=== PATIENT | male | born 1955 | race Caucasian/White ===

== ENCOUNTER → 2019-07-23 | Outpatient (CLI) | payer MEDICARE, OTHER ==
[~2019-07-23] MED LIST: FLEXERIL 1010 MG/TAB PO; LEVOXYL0.075 MG PO; NEXIUM 20MG20 MG PO; NORCO 325 MG-7.1 TAB PO; VALIUM 5MG T5 MG/TAB PO
== END ==
LOC: COL.RAD 09:00
DX: Z13.6 Encounter for screening for cardiovascular disorders (principal)